=== PATIENT | male | born 1940 | race Caucasian/White ===

== ENCOUNTER 2023-04-21 08:57 | Inpatient (IN) | payer MEDICARE, BC ==
[~2023-04-21] VITALS: Ht 177.8 cm; Wt 67.1 kg
--- NOTE | 2023-04-21 09:10 | NUR ---
Patient brought in by ambulance, connected to groundwater monitoring technician assess by physician. Placed on NR 15L. saturtion 100%. Diaper changed and large blood clot removed.
[2023-04-21] MEDS ORDERED: IV NORMAL SALINE 500 ML BAG IV ONE (09:15)
[2023-04-21] MEDS ORDERED: TEMA15CA PO (09:33)
[2023-04-21] MEDS ORDERED: OLAN5TAB3 PO (09:33)
[2023-04-21] MEDS ORDERED: ASPI81TA31 PO (09:33)
[2023-04-21] MEDS ORDERED: TAMS-3 PO (09:33)
[2023-04-21] MEDS ORDERED: BISA10SU95 RC (09:33)
[2023-04-21] MEDS ORDERED: ATOR40TA PO (09:33)
[2023-04-21] MEDS ORDERED: LIDOCAINE 4% TP (09:33)
[2023-04-21] MEDS ORDERED: MELA3CAP2 PO (09:33)
[2023-04-21] MEDS ORDERED: MAGN400O6 PO (09:33)
[2023-04-21] MEDS ORDERED: ACET325T53 PO (09:33)
[2023-04-21] MEDS ORDERED: POLY250017 PO (09:33)
[2023-04-21] MEDS ORDERED: BUPR200T31 PO (09:33)
[2023-04-21] MEDS ORDERED: NEOM1OIN19 TP (09:33)
[2023-04-21 09:51] LABS: HEMATOCRIT 29.9 % (36.7-47.1); MEAN CORPUSCULAR VOLUME 97.9 fL (73.0-96.2); PLATELET COUNT (AUTO) 342 K/uL (152-348)
[2023-04-21 09:59] LABS: CARBON DIOXIDE 29 mmol/L (21-32); CHLORIDE 108 mmol/L (98-107); CREATININE 0.9 mg/dL (0.6-1.3); GLUCOSE 108 mg/dL (74-106); POTASSIUM 3.6 mmol/L (3.5-5.1); UREA NITROGEN, BLOOD 16 mg/dL (7-18)
[2023-04-21 10:05] LABS: ALANINE AMINOTRANSFERASE < 6 U/L (16-63); ALKALINE PHOSPHATASE 87 U/L (50-136); ASPARTATE AMINOTRANSFERASE 6 U/L (15-37); BILIRUBIN,DIRECT 0.1 mg/dL (0.0-0.2); BILIRUBIN,TOTAL 0.4 mg/dL (0.2-1.0); TOTAL PROTEIN, SERUM 5.8 g/dL (6.4-8.2)
--- NOTE | 2023-04-21 10:07 | NUR ---
At this time taken off NR did not tolerated well saturation drop to 88% Dr. qureshi. HR of 66 95/58 RR18. No c/of pain will continue with care plan. Addendum: 04/21/23 at 1036 by LESOS NC 6 liters applied at this time.
--- NOTE | 2023-04-21 10:17 | NUR ---
[facility] called message left with facing machine operator awaiting call back from Dr. Villafana.
--- NOTE | 2023-04-21 10:21 | NUR ---
Dr. Villafana calling back and discussed care plan with Dr. Mckee.
[2023-04-21] MEDS ORDERED: ACETAMINOPHEN 325 MG TABLET PO PRN (10:30)
[2023-04-21] MEDS ORDERED: ONDANSETRON 4 MG/2 ML VIAL IV PRN (10:30)
[2023-04-21] MEDS ORDERED: hydrALAZINE HCL 20 MG/1 ML VIAL IV PRN (10:30)
--- NOTE | 2023-04-21 10:35 | NUR ---
Admitting physician in to examine pt.
--- NOTE | 2023-04-21 10:36 | NUR ---
NC oxygen lowered to 2 liters saturation 96%.
--- NOTE | 2023-04-21 10:51 | NUR ---
Report given to charge Tim Shipley. patient will be taken up once Covid-19 results are reported.
--- NOTE | 2023-04-21 11:30 | NUR ---
Pt. admitted to [facility] unit. Alert and oriented x1 and confused. Admitted because of GI bleeding. Noted pt. to be stable. Call light within reach. Bed in low position. Pt. is bed bounded. Incontinent of bowel and bladder. Will keep monitoring the patient.
[2023-04-21 11:48] VITALS: BP 126/72
--- NOTE | 2023-04-21 11:48 | NUR ---
Took pt to room 325 last set of vitals: hr 79, 137/75 saturation of 98% on 2LNC. patient situated in bed. and linen change with help of chargeback specialist.
[2023-04-21] MEDS: PANTOPRAZOLE SODIUM 40 MG VIAL IV SCH ×2 (11:54→20:29)
[2023-04-21] MEDS: IV NS 1000 ML 1,000 ML IV PRN ×2 (11:55→20:31)
--- NOTE | 2023-04-21 13:48 | NUR ---
Skin assessment done, noted with redness to sacral area, foam dressing applied, continue turning and repositioning, noted with purplish discolorations to left forearm, keep free from friction and further complications. also noted with blanchable redness to both heels, float on pillows all the time to prevent further complications. inspect skin every shift.
--- NOTE | 2023-04-21 14:02 | NUR ---
patient son requested to talk to , Doctor Can made aware. patient lives in [facility] in [place]. Addendum: 04/21/23 at 1407 by DANII CASTAÑEDA RN RN per dr can he called at [phone] but no answer. this clinical writer tried to call again as well, no answer.
[2023-04-21 16:42] VITALS: BP 128/44
[2023-04-21] MEDS: OLANZAPINE 5 MG TABLET PO SCH (17:23)
[2023-04-21] MEDS: DOCUSATE SODIUM 100 MG CAPSULE PO SCH (17:23)
[2023-04-21 18:13] LABS: HEMATOCRIT 25.5 % (36.7-47.1)
--- NOTE | 2023-04-21 19:45 | NUR ---
found heplock out patient with old blood on his left forearm ivf disconnected and was out re sited H/L paced no. 20 G attempted x1 to the left ac .ADVISED AND EDUCATED PATIENT NOT TO REMOVED THE IVF .
[2023-04-21] MEDS: ATORVASTATIN 40 MG TABLET PO SCH (20:29)
--- NOTE | 2023-04-21 20:30 | NUR ---
with cnas help changed soiled linens and gown ,patient incontinent of urine no active GI BLEEDING NOTED.
--- NOTE | 2023-04-21 20:45 | NUR ---
TAD FRYE CALLED ASKED IF PATIENT IS BEING D/C TODAY INFORMED HER PATIENT IS NOT FOR D/C SHE SAID PATIENT LIVES IN HER BOARDING HOME THE NEST AND IF HE IS BEING D/C SHE CAN EMBROIDERY FINISHER THE PATIENT. HER TEL NO .[phone] WILL ENDORSED IN AM .
[2023-04-21 20:49] VITALS: BP 134/8
--- NOTE | 2023-04-22 01:30 | NUR ---
patient getting out of bed confused and unable to follow commands advised to call for help and to used the call light patient unable to comprehend restraint protocol implemented for fall precaution and patient keep removing ivf .
--- NOTE | 2023-04-22 02:00 | NUR ---
bias cutting machine operator came for patient H/H schedule at 0200 patient refused to have the lab done he told the phlebotomists to come back with in 5 to 7 minutes when the bias cutting machine operator came back the patient strongly refused the lab draw .
[2023-04-22 04:30] VITALS: BP 116/57
[2023-04-22 05:16] LABS: HEMATOCRIT 24.5 % (36.7-47.1); MEAN CORPUSCULAR HEMOGLOBIN 33.3 uug (23.8-33.4); PLATELET COUNT (AUTO) 286 K/uL (152-348)
[2023-04-22 05:29] LABS: BILIRUBIN,TOTAL 0.2 mg/dL (0.2-1.0); CREATININE 0.7 mg/dL (0.6-1.3); PHOSPHOROUS 2.4 mg/dL (2.5-4.9); POTASSIUM 3.3 mmol/L (3.5-5.1); TOTAL PROTEIN, SERUM 5.1 g/dL (6.4-8.2)
--- NOTE | 2023-04-22 06:00 | NUR ---
INCONTINENT OF URINE CHANGED SOILED LINENS AND GOWN TURNED AND REPOSITION OFFLOADED BACK WITH PILLOWS AND BUE AND BLE ELEVATED WITH PILLOWS.
[2023-04-22] MEDS: TAMSULOSIN HCL 0.4 MG CAP.SR.24H PO SCH ×2 (08:32→20:17)
[2023-04-22] MEDS: PANTOPRAZOLE SODIUM 40 MG VIAL IV SCH (08:32)
[2023-04-22] MEDS: buPROPion XL 150 MG TAB.SR.24H PO SCH (08:32)
[2023-04-22] MEDS: DOCUSATE SODIUM 100 MG CAPSULE PO SCH ×2 (08:33→16:43)
[2023-04-22] MEDS ORDERED: BUPROPION HCL 300 MG PO SCH (09:00)
[2023-04-22] MEDS ORDERED: POTASSIUM CHLORIDE 20 MEQ TAB.PRT.SR PO ONE (09:30)
--- NOTE | 2023-04-22 10:00 | NUR ---
POTASSIUM LEVEL IS 3.3 WITH ORDER FOR POTASSIUM REPLACEMENTS AND NOTED.
[2023-04-22 10:21] LABS: HEMATOCRIT 23.4 % (36.7-47.1)
--- NOTE | 2023-04-22 10:22 | NUR ---
PATIENT SEEN AND EXAMINED BY SHANIKA JETER CANINE SERVICE INSTRUCTOR TRAINER WITH NEW ORDERS AND NOTED.
--- NOTE | 2023-04-22 10:30 | NUR ---
PATIENT IS STILL FORGETFUL BUT IS MORE ALERT SO HIS ARTHUR WRIST RESTRAINTS IS ON HOLD WILL OBSERVE PATIENT FOR THE NEED TO CONTINUE WITH THE RESTRAINTS.
[2023-04-22 11:34] VITALS: BP 118/55
[2023-04-22] MEDS: IV NS 1000 ML 1,000 ML IV PRN ×2 (11:37→22:32)
--- NOTE | 2023-04-22 12:45 | NUR ---
CALLED AND NOTIFIED SHANIKA JETER RE PATIENT HAS A STANDING ORDER FOR H/H THAT IS ON UNTIL THE AND ALREADY WAS DRAWN AT 1000 AND HE ORDERED ANOTHER BLOOD DRAW AT 1600 AND HE STATED TO CANCEL THE 1600 AND LEAVE IT IS FROM DR JARA AND NOTED.
[2023-04-22] MEDS ORDERED: NEUTRA PHOS PACKET PO ONE (15:30)
[2023-04-22 15:31] VITALS: BP 125/53
[2023-04-22] MEDS: PANTOPRAZOLE SODIUM 40 MG TABLET.DR PO SCH (16:43)
[2023-04-22] MEDS: OLANZAPINE 5 MG TABLET PO SCH (17:27)
--- NOTE | 2023-04-22 17:34 | NUR ---
BILATERAL WRIST RESTRAINTS REMAIN OFF AT THIS TIME PATIENT HAS BEEN REDIRECTABLE AND IS NOT PULLING ON HIS IVS WILL DISCONTINUE AT THIS TIME AND WILL REASSESS NEEDED. PHOS LEVEL IS 2.2 WITH REPLACEMENTS ORDERED.
[2023-04-22 18:04] LABS: HEMATOCRIT 23.5 % (36.7-47.1)
[2023-04-22] MEDS: ATORVASTATIN 40 MG TABLET PO SCH (20:18)
[2023-04-22 20:31] VITALS: BP 128/46
[2023-04-23] VITALS (7 sets, daily range): BP systolic 103–156; BP diastolic 48–63
--- NOTE | 2023-04-23 02:08 | NUR ---
incontinent of stool noted with blood in the stool send stool for occult blood with cnas help changed soiled linens and gown turned and reposition patient offloaded back and bilateral heels with pillow .
[2023-04-23 02:11] LABS: HEMATOCRIT 21.1 % (36.7-47.1)
--- NOTE | 2023-04-23 02:54 | NUR ---
CALLED [facility] FOR PATIENT H/H RESULTS 7.2 .1 AND PATIENT HAD X1 BM MODERATE IN AMOUNT WITH BLOOD COLLECTED STOOL AND SEND OF OCCULT BLOOD WITH ORDER TO GIVE 1 UNIT OF PRBC .
[2023-04-23 03:07] LABS: *OCCULT BLOOD STOOL POSITIVE (NEGATIVE)
--- NOTE | 2023-04-23 04:10 | NUR ---
patient sign blood consent and agree with blood transfusion witness by another RN at b/s [place] .
--- NOTE | 2023-04-23 04:24 | NUR ---
STARTED 1 UNIT PRBC BLOOD TRANSFUSION PROTOCOL FOLLOWED.
[2023-04-23] MEDS: PANTOPRAZOLE SODIUM 40 MG TABLET.DR PO SCH ×2 (06:07→16:30)
--- NOTE | 2023-04-23 08:05 | NUR ---
BLOOD TRANSFUSSION COMPLETED AT THIS TIME AND PATIENT TOLERATED WELL WITH NO ADVERSE OR ALLERGIC REACTIONS AT THIS TIME.
[2023-04-23] MEDS: buPROPion XL 150 MG TAB.SR.24H PO SCH (08:20)
[2023-04-23] MEDS: DOCUSATE SODIUM 100 MG CAPSULE PO SCH ×2 (08:20→16:30)
[2023-04-23] MEDS: TAMSULOSIN HCL 0.4 MG CAP.SR.24H PO SCH ×2 (08:21→21:32)
[2023-04-23 10:19] LABS: CREATININE 0.8 mg/dL (0.6-1.3); MAGNESIUM 1.8 mg/dL (1.8-2.4); PHOSPHOROUS 2.3 mg/dL (2.5-4.9); POTASSIUM 3.5 mmol/L (3.5-5.1)
[2023-04-23 10:22] LABS: HEMATOCRIT 23.1 % (36.7-47.1); MEAN CORPUSCULAR VOLUME 97.3 fL (73.0-96.2); PLATELET COUNT (AUTO) 242 K/uL (152-348)
[2023-04-23] MEDS: IV NS 1000 ML 1,000 ML IV PRN ×2 (10:25→23:12)
--- NOTE | 2023-04-23 11:24 | NUR ---
WOUND CARE CO NSULT: PT ANGRY AND IRRITABLE, REFUSED SKIN ASSESSMENT. PER ADMISSION PHOTOS AND NURSING DOCUMENTATION, SACRAL DEEP TISSUE INJURY, REDNESS TO HEELS AND LOWER LEGS NOTED TO BE PRESENT ON ADMISSION. DISCUSSED SKIN PROTECTION WITH NURSING STAFF. MD IN AGREEMENT WITH PLAN OF CARE.
[2023-04-23] MEDS ORDERED: REMEDY ESSENTIAL ZINC PASTE 113 GM TOP PRN (11:30)
[2023-04-23] MEDS: REMEDY ESSENTIAL ZINC PASTE 113 GM TOP SCH ×2 (11:45→21:33)
--- NOTE | 2023-04-23 14:16 | NUR ---
PER DR JARA STATED THAT HE SPOKE WITH DR FARRIS AND THE PLAN IS THAT PATIENT WILL HAVE COLONOSCOPY TOMORROW AND WILL HAVE GOLYTELY TONIGHT FOR THE PREP DR JARA ALSO STATED TO INSERT NGT AND GIVE PATIENT THE GOLYTELY THROUGH THE TUBE SPOKE WITH PATIENT AND HE STATED ABSOLUTELY NOT WILL NOT ALLOW IT STATED THAT HE WILL BE ABLE TO DRIK THE GOLYTELY MESSAGE SENT TO DR JARA AWAITING FOR HIS RESPONSE.
--- NOTE | 2023-04-23 15:00 | NUR ---
DR JARA RETURNED CALL AND STATED OKAY TO TRY LETTING PATIENT DRINK THE GOLYTELY.
--- NOTE | 2023-04-23 15:55 | NUR ---
CALLED AND SPOKE WITH PATIENTS MAX ARMANDO COLONOSCOPY AND CONSCENT OBTAINED WITHNESSED BY ANOTHER RN PER PROTOCOL AND FILED IN THE CHART.
[2023-04-23] MEDS ORDERED: NEUTRA PHOS PACKET PO ONE (16:00)
[2023-04-23] MEDS: OLANZAPINE 5 MG TABLET PO SCH (17:32)
--- NOTE | 2023-04-23 17:35 | NUR ---
GOLYTELY STARTED ORDERED PATIENT IS DRINKING SLOWLY ENCOURAGED TO KEEP DRINKING ORDERED IN ORDER TO AVOID PLACING THE NGT AND HE EXPRESSED UNDERSTANDING.
[2023-04-23] MEDS ORDERED: GOLYTELY 4000 ML BOTTLE PO ONE (18:00)
--- NOTE | 2023-04-23 18:18 | NUR ---
ON HIS 3RD CUP OF THE GOLYTELY ENCOURAGED TO KEEP IT UP AND CONTINUE MUCH POSSIBLE.
[2023-04-23 18:56] LABS: HEMATOCRIT 23.8 % (36.7-47.1)
--- NOTE | 2023-04-23 19:40 | NUR ---
AT THIS TIME PATIENT CONSUMED ABOUT 5 CUPS OF 120 ML EACH CUP AND THEN REFUSED TO DRINK ANYMORE SO WE WERE ABLE TO INSERT NGT TO HIS RIGHT NARES GAUGE 14 AND ARTHUR WRIST RESTRAINTS APPLIED PATIENT IS TRYING TO REMOVE THE TUBE DR Castillo NOTIFIED AND OKAYED.
--- NOTE | 2023-04-23 21:15 | NUR ---
incontinent of stool with blood with cnas help changed soiled linens and gown . patient with NGT for golytely pre op for GI PROCEDURE patient is schedule for colonoscopy in am.
[2023-04-23] MEDS: ATORVASTATIN 40 MG TABLET PO SCH (21:32)
--- NOTE | 2023-04-23 22:00 | NUR ---
tolerating golytely solution via the NGT hob up aspiration precaution observed .
--- NOTE | 2023-04-24 00:15 | NUR ---
incontinent of stool brownish colored stool no blood noted this time .
--- NOTE | 2023-04-24 03:30 | NUR ---
sleeping in bed no respiratory distress noted .
[2023-04-24 04:00] VITALS: BP 155/79
--- NOTE | 2023-04-24 05:30 | NUR ---
incontinent of stool form soft stool with blood . changed soiled linens and gown , perineal and penile care done .
[2023-04-24] MEDS: PANTOPRAZOLE SODIUM 40 MG TABLET.DR PO SCH ×2 (06:09→17:36)
--- NOTE | 2023-04-24 06:10 | NUR ---
PROTONIX NOT GIVEN PATIENT NPO AND PILL INSTRUCTION NOT TO CRUSHED MEDS PATIENT WITH NGT WILL ENDORSED TO CHANGED PROTONIX TO IVP .
[2023-04-24 06:44] LABS: HEMATOCRIT 25.8 % (36.7-47.1); MEAN CORPUSCULAR HEMOGLOBIN 33.5 uug (23.8-33.4); MEAN CORPUSCULAR VOLUME 97.4 fL (73.0-96.2); PLATELET COUNT (AUTO) 306 K/uL (152-348)
[2023-04-24 07:10] LABS: CARBON DIOXIDE 28 mmol/L (21-32); CHLORIDE 109 mmol/L (98-107); CREATININE 0.7 mg/dL (0.6-1.3); GLUCOSE 93 mg/dL (74-106); PHOSPHOROUS 2.5 mg/dL (2.5-4.9); POTASSIUM 3.3 mmol/L (3.5-5.1); UREA NITROGEN, BLOOD 9 mg/dL (7-18)
--- NOTE | 2023-04-24 08:00 | NUR ---
PER DALILA FROM OR DR GODINEZ AWARE THAT PATIENT TOOK 3800 ML OF GOLYTELY THEN C/O ABD PAIN AND PER THE NOC NURSE PATIENT HAD A BOWEL MOVEMENT MACHINE SHOP WORKER AND THE JUDSON IS NOT CLEAR WITH ORDERS TO GIVE REGLAN IV PUSH X I THEN GIVE THE REST OF THE GOLYTELY AND NOTED.STATED TO KEEP PATIENT NPO UNTIL THE SCHEDULED TIME FOR COLONOSCOPY WHICH IS 8 PM
[2023-04-24] MEDS ORDERED: METOCLOPRAMIDE HCL 10 MG/2 ML VIAL IV ONE (08:45)
[2023-04-24] MEDS ORDERED: POTASSIUM CHLORIDE 50 ML IV SCH (09:15)
[2023-04-24 09:41] LABS: BILIRUBIN,DIRECT 0.1 mg/dL (0.0-0.2); BILIRUBIN,TOTAL 0.3 mg/dL (0.2-1.0); TOTAL PROTEIN, SERUM 5.1 g/dL (6.4-8.2)
[2023-04-24 10:07] LABS: THYROID STIMULATING HORMONE 2.27 mIU/mL (0.358-3.740)
--- NOTE | 2023-04-24 10:07 | NUR ---
CALLED DR HERBERT ARMANDO PATIENT IS STILL HAS FORMED STOOL LARGE AMOUNT DESPITE THE GOLYTELY ORDERED LEFT HIM A MESSAGE.
--- NOTE | 2023-04-24 10:12 | NUR ---
DR GODINEZ RETURNED CALL AND GAVE ME AN ORDER FOR ANOTHER BOTTLE GOLYTELY AND STATED TO KEEP PATIENT NPO AFTER LUNCH AND NOTED
[2023-04-24] MEDS: buPROPion XL 150 MG TAB.SR.24H PO SCH (10:13)
[2023-04-24] MEDS: DOCUSATE SODIUM 100 MG CAPSULE PO SCH ×2 (10:13→17:36)
[2023-04-24] MEDS: TAMSULOSIN HCL 0.4 MG CAP.SR.24H PO SCH ×2 (10:13→20:27)
[2023-04-24] MEDS: REMEDY ESSENTIAL ZINC PASTE 113 GM TOP SCH ×2 (10:14→20:31)
[2023-04-24] MEDS ORDERED: GOLYTELY 4000 ML BOTTLE PO ONE (10:15)
[2023-04-24 11:01] VITALS: BP 128/69
--- NOTE | 2023-04-24 11:48 | NUR ---
WOUND CARE: PT PRESENTS WITH SACRAL DEEP TISSUE INJURY WHICH WAS NOTED TO BE PRESENT ON ADMISSION. PT IS INCONTINENT OF FORMED STOOL. DISCUSSED WITH NURSING STAFF. DISCUSSED SKIN PROTECTION WITH NURSING STAFF. MD IN AGREEMENT WITH PLAN OF CARE.
[2023-04-24] MEDS: IV NS 1000 ML 1,000 ML IV PRN (12:36)
[2023-04-24 14:59] LABS: HEMATOCRIT 25.5 % (36.7-47.1)
[2023-04-24 15:03] VITALS: BP 129/60
--- NOTE | 2023-04-24 16:52 | NUR ---
PATIENT SEEN AND EXAMINED BY DR BYRNES WITH NEW ORDERS AND NOTED.
[2023-04-24] MEDS: OLANZAPINE 5 MG TABLET PO SCH (17:36)
--- NOTE | 2023-04-24 18:00 | NUR ---
WHOLE BOTTLE OF GOLYTELY GIVEN VIA NGT ORDERED AND THE STOOL IA STILL YELLOWISH WITH SEDIMENTS PATIENT HAS 5 BOWEL MOVEMENTS TODAY.
--- NOTE | 2023-04-24 19:03 | NUR ---
THE SURGICAL TEAM HERE AND I NOTIFIED AND SHOWED THEM THAT PATIENT STILL HAS SEDIMENTS IN HIS BOWEL MOVEMENTS AND ITS STILL YELLOW IN COLOR STATED WILL LET DR GODINEZ KNOW STATED THAT ITS UNLIKELY THAT IT WILL BE DONE TODAY.
[2023-04-24 20:20] VITALS: BP 144/60
[2023-04-24] MEDS: ATORVASTATIN 40 MG TABLET PO SCH (20:27)
[2023-04-25] MEDS: IV NS 1000 ML 1,000 ML IV PRN (01:34)
--- NOTE | 2023-04-25 03:35 | NUR ---
Admitted for GI bleed. AAOx1-2 Confused and disoriented.Bilateral wrist restraints intact, released q2h and ROM done. NGT intact. Colonoscopy cancelled. Patient wasnt cleared yet. Patient still having periods of loose BM x2 Kept clean and dry. Will monitor patient. IVF's infusing well. Kept comfortable. Patient keep on pulling his diaper and IV. Incontinent of urine x2. No more BM. Clear liquid diet tolerated well. Will monitor patient. Fall precautions maintained. Siderails up for safety. VSS.
[2023-04-25 04:35] VITALS: BP 112/51
[2023-04-25] MEDS: PANTOPRAZOLE SODIUM 40 MG TABLET.DR PO SCH ×2 (06:13→16:50)
[2023-04-25 06:45] LABS: HEMATOCRIT 22.3 % (36.7-47.1); MEAN CORPUSCULAR HEMOGLOBIN 33.6 uug (23.8-33.4); PLATELET COUNT (AUTO) 306 K/uL (152-348)
[2023-04-25 07:21] LABS: IRON, SERUM 21 ug/dL (50-175)
[2023-04-25 07:39] LABS: ALANINE AMINOTRANSFERASE 27 U/L (16-63); ALKALINE PHOSPHATASE 82 U/L (50-136); ASPARTATE AMINOTRANSFERASE 24 U/L (15-37); BILIRUBIN,TOTAL 0.4 mg/dL (0.2-1.0); CARBON DIOXIDE 28 mmol/L (21-32); CHLORIDE 107 mmol/L (98-107); CREATININE 0.7 mg/dL (0.6-1.3); GLUCOSE 63 mg/dL (74-106); MAGNESIUM 1.9 mg/dL (1.8-2.4); PHOSPHOROUS 2.7 mg/dL (2.5-4.9); TOTAL PROTEIN, SERUM 4.7 g/dL (6.4-8.2); UREA NITROGEN, BLOOD 5 mg/dL (7-18)
[2023-04-25] MEDS: DOCUSATE SODIUM 100 MG CAPSULE PO SCH ×2 (08:43→16:51)
[2023-04-25] MEDS: buPROPion XL 150 MG TAB.SR.24H PO SCH (08:43)
[2023-04-25] MEDS: TAMSULOSIN HCL 0.4 MG CAP.SR.24H PO SCH ×2 (08:44→20:30)
[2023-04-25] MEDS: REMEDY ESSENTIAL ZINC PASTE 113 GM TOP SCH ×2 (08:44→20:32)
--- NOTE | 2023-04-25 09:46 | NUR ---
0730-REC'D PATIENT IN BED, HOB ELEVATED. PATIENT IS AWAKE, VERBALLY RESPONSIVE, DENIES PAIN. NO RESPIRATORY DISTRESS NOTED. PATIENT FORGETFUL WITH PERIODS OF CONFUSION. REDIRECT NEEDED. REC'D PATIENT WITH SOFT WRIST RESTRAINTS IN PLACE DT PULLING OUT ON TUBINGS e.g. NGT/IVs, SKIN CHECKED, NO SKIN IMPAIRMENT/CIRCULATION NOTED. ALL SAFETY MEASURES IN PLACE, CALL LIGHT WITHIN REACH. FREQUENT VISUAL CHECKS DONE. 0900-SCHEDULED MEDICATIONS ADMINISTERED WITH NO ASE NOTED. PATIENT CONTINUES ON IVF HYDRATION ORDERED., FOLLOWED UP WITH Dr. GODINEZ, (GI MD) REGARDING COLONOSCOPY PROCEDURE SCHEDULED 04/24/23 & NOT DONE. PER Dr. GODINEZ, PROCEDURE TO BE HOLD IF PATIENT IS NOT BLEEDING. 0940-SPOKE TO PATIENT'S SON (DIXIE) & UPDATED ON PATIENT'S CONDITION/COLONOSCOPY PROCEDURE NOT DONE FOR NOW. PER DIXIE, KINDLY KEEP HIM UPDATED ON ANY PROCEDURE AND/OR ANY PROCEDURE DONE.
[2023-04-25 11:14] VITALS: BP 126/75
[2023-04-25] MEDS: POTASSIUM CHLORIDE 20 MEQ TAB.PRT.SR PO SCH ×3 (11:39→16:53)
--- NOTE | 2023-04-25 13:42 | NUR ---
1:28PM-SPOKE TO Dr. HINOJOSA, (GI) SPECIALIST, F/U ON COLONOSCOPY. PER Dr. HINOJOSA HE DOES "NOT HAVE TIME TO DO THE COLONOSCOPY PROCEDURE TODAY, PATIENT IS STABLE., KEEP HIM ON A CLEAR LIQUID DIET" Dr. GODINEZ ADDED, HE WILL SPEAK TO DR. RICHARD.
[2023-04-25 15:01] VITALS: BP 93/46
[2023-04-25 17:37] LABS: HEMATOCRIT 22.6 % (36.7-47.1)
[2023-04-25] MEDS: POTASSIUM CHLORIDE 20 MEQ in IV D5/ 0.9% NACL 1,000 ML IV PRN (17:47)
[2023-04-25] MEDS: OLANZAPINE 5 MG TABLET PO SCH (18:27)
--- NOTE | 2023-04-25 18:46 | NUR ---
Per Dr. Jaramillo, agrees on clear liq diet till mid night, thereafter NPO. IVF NS dc'd, patient now on IVF + KCL 20mEq D5 NS. IV to RT hand G20" infusing well, site intact. Patient continues on soft wrist restraints with no skin impairment or circulation noted at this time. Patient in stable conditions, no BM during shift. VSS, no c/o pain or discomfort, no respiratory issues noted. All needs attended well and met. Endorsed to incoming shift relieving nurse.
[2023-04-25] MEDS ORDERED: PROPOFOL 200 MG/20 ML BOTTLE ONE (19:00)
[2023-04-25] MEDS ORDERED: LIDOCAINE-MPF 2% 5 ML VIAL ONE (19:00)
[2023-04-25] MEDS: ATORVASTATIN 40 MG TABLET PO SCH (20:30)
[2023-04-25 23:06] LABS: HEMATOCRIT 24.4 % (36.7-47.1)
[2023-04-25] MEDS ORDERED: LORAZEPAM 2 MG/1 ML VIAL IV ONE (23:15)
--- NOTE | 2023-04-26 00:24 | NUR ---
Received patient in bed confused and disoriented. Patient on bilateral wrist restraints. Patient been screaming at times,been refusing care and vital signs. IVF's infusing well. NPO after MN. For colonoscopy this am. Ativan 1 mg IV push given as ordered. Patient been incontinent of urine but no BM. At approximately 2230pm noticed patient having episodes of bleeding with clots. Stat Hgb & Hct done. Patient kept clean and will monitor for results. Hgb 8.4 admitting interviewer aware. Kept comfortable. Will monitor for further bleeding. All needs attended. VSS.
--- NOTE | 2023-04-26 03:58 | NUR ---
Patient still have some rectal bleeding with clots. NPO maintained. For colonoscopy this am. VSS. For repeat CBC this am. Bilateral wrist restraints maintained. No agitation noted so far.
[2023-04-26 05:32] VITALS: BP 144/73
[2023-04-26] MEDS: POTASSIUM CHLORIDE 20 MEQ in IV D5/ 0.9% NACL 1,000 ML IV PRN ×2 (05:59→18:00)
[2023-04-26] MEDS: PANTOPRAZOLE SODIUM 40 MG TABLET.DR PO SCH ×2 (06:11→16:32)
[2023-04-26 06:41] LABS: HEMATOCRIT 21.4 % (36.7-47.1); MEAN CORPUSCULAR HEMOGLOBIN 34.4 uug (23.8-33.4); MEAN CORPUSCULAR VOLUME 98.2 fL (73.0-96.2); PLATELET COUNT (AUTO) 331 K/uL (152-348)
[2023-04-26 06:57] LABS: CREATININE 0.7 mg/dL (0.6-1.3); MAGNESIUM 1.9 mg/dL (1.8-2.4); PHOSPHOROUS 3.1 mg/dL (2.5-4.9); POTASSIUM 3.6 mmol/L (3.5-5.1)
[2023-04-26] MEDS: DOCUSATE SODIUM 100 MG CAPSULE PO SCH ×2 (09:00→16:32)
[2023-04-26] MEDS: buPROPion XL 150 MG TAB.SR.24H PO SCH (09:00)
[2023-04-26] MEDS: CYANOCOBALAMIN 1000 MCG/ML VIAL IM SCH (09:00)
[2023-04-26] MEDS: TAMSULOSIN HCL 0.4 MG CAP.SR.24H PO SCH ×2 (09:00→20:36)
[2023-04-26] MEDS: REMEDY ESSENTIAL ZINC PASTE 113 GM TOP SCH ×2 (09:11→20:37)
[2023-04-26 11:46] VITALS: BP 138/51
[2023-04-26] MEDS: MORPHINE SULFATE 2 MG/1 ML DISP.SYRIN IVP PRN ×2 (13:47→18:00)
--- NOTE | 2023-04-26 15:24 | NUR ---
patient is in bed, turned, repositioned, both heel skin inspected, no issues noted, kept clean and dry, Kept NPO, colonscopy this evening at 7am, son Gabe is aware. NG tube removed. no bleeding noted until this time.
[2023-04-26 15:55] VITALS: BP 145/57
[2023-04-26] MEDS: OLANZAPINE 5 MG TABLET PO SCH (16:32)
[2023-04-26] MEDS ORDERED: EPINEPHRINE-PF 1:1000 1 MG/ML AMPUL ONE (18:33)
[2023-04-26] MEDS ORDERED: FENTANYL CITRATE 100 MCG/2 ML AMPUL ONE (18:44)
--- NOTE | 2023-04-26 18:46 | NUR ---
patient is picked up for colonscopy, endorsed to OR nurse that patient was given 2mg of Morphine push at 1800.
[2023-04-26] MEDS: ATORVASTATIN 40 MG TABLET PO SCH (20:36)
[2023-04-26 23:01] VITALS: BP 106/66
[2023-04-27] MEDS: MORPHINE SULFATE 2 MG/1 ML DISP.SYRIN IVP PRN (02:21)
[2023-04-27] MEDS: PANTOPRAZOLE SODIUM 40 MG TABLET.DR PO SCH ×2 (06:20→17:46)
--- NOTE | 2023-04-27 07:26 | NUR ---
REPORT GIVEN TO NIRANJAN GIBSON
[2023-04-27 09:04] LABS: HEMATOCRIT 21.7 % (36.7-47.1); MEAN CORPUSCULAR HEMOGLOBIN 33.8 uug (23.8-33.4); MEAN CORPUSCULAR VOLUME 98.9 fL (73.0-96.2); PLATELET COUNT (AUTO) 357 K/uL (152-348)
[2023-04-27 09:30] LABS: CREATININE 0.8 mg/dL (0.6-1.3); POTASSIUM 3.6 mmol/L (3.5-5.1)
[2023-04-27 09:35] LABS: BILIRUBIN,TOTAL 0.3 mg/dL (0.2-1.0); TOTAL PROTEIN, SERUM 5.3 g/dL (6.4-8.2)
[2023-04-27] MEDS: CYANOCOBALAMIN 1000 MCG/ML VIAL IM SCH (09:59)
[2023-04-27] MEDS: DOCUSATE SODIUM 100 MG CAPSULE PO SCH ×2 (09:59→17:47)
[2023-04-27] MEDS: buPROPion XL 150 MG TAB.SR.24H PO SCH (09:59)
[2023-04-27] MEDS: TAMSULOSIN HCL 0.4 MG CAP.SR.24H PO SCH ×2 (09:59→21:49)
[2023-04-27 10:00] VITALS: BP 95/46
[2023-04-27] MEDS: REMEDY ESSENTIAL ZINC PASTE 113 GM TOP SCH ×2 (10:04→21:00)
[2023-04-27] MEDS: POTASSIUM CHLORIDE 20 MEQ in IV D5/ 0.9% NACL 1,000 ML IV PRN (10:06)
[2023-04-27 12:09] VITALS: BP 101/49
[2023-04-27] MEDS ORDERED: EPOETIN ALFA-EPBX 10,000 UNIT/ML VIAL SQ ONE (13:00)
[2023-04-27 15:44] VITALS: BP 104/47
[2023-04-27 17:18] LABS: *BILIRUBIN,URIN NEGATIVE (NEGATIVE); *BLOOD, URINE 2+ (NEGATIVE); *CLARITY,URINE CLEAR (CLEAR); *COLOR,URINE YELLOW (YELLOW); *KETONES,URINE NEGATIVE (NEGATIVE); *UROBILINOGEN,URINE 0.2 E.U./dl (NORMAL); LEUKOCYTE ESTERASE ,URINE 3+ (NEGATIVE); NITRITE, URINE POSITIVE (NEGATIVE); UGLUCOSE NEGATIVE (NEGATIVE)
[2023-04-27 17:33] LABS: BACTERIA,URINE MANY /HPF (NONE SEEN); RBC,URINE 50-80 /HPF (0-3); SQUAMOUS EPITHELIAL CELL,UR FEW /HPF (NONE SEEN); WBC,URINE 80-100 /HPF (0-3)
[2023-04-27] MEDS: OLANZAPINE 5 MG TABLET PO SCH (17:46)
[2023-04-27] MEDS: CEFTRIAXONE 1 G in IV DEXTROSE 5% 50 ML IV SCH (18:16)
--- NOTE | 2023-04-27 19:25 | NUR ---
RECEIVED REPORT FROM [facility] SHIFT RN. PATIENT IS ALERT AND ORIENTED X1-2 AND SPEAKS CITIZEN OF [place]. VITAL SIGNS STABLE. PATIENT TOLERATES PO MEDICATIONS AND DIET WELL. PATIENT DENIES PAIN. PATIENT CONTINUES TO BE ON RESTRAINTS, NOTED TO CONTINUE TO BE RESTLESS, HOWEVER ABLE TO MANAGED. PATIENT WAS SET TO BE DISCHARGE TODAY. HOWEVER AFTER DISCUSSION WITH SENIORITY MANOR SECOND MILLER, UDAY, AND SON, ESTELLE. RN NOTIFIES MD REGARDING THEIR CONCERNS RELATED TO THE BLOOD PRESSURE. PER MD, PATIENT WILL STAY ONE MORE NIGHT FOR OBSERVATION. RN NOTED. NOTIFIED FAMILY, SENIORITY MANOR SECOND MILLER, AND ASSOCIATE PROFESSOR OF MUSIC APPROPRIATELY. NO ACUTE DISTRESS NOTED. CALL LIGHT WITHIN REACH. FALL PRECAUTIONS OBSERVED. RN ENDORSED CARE TO [facility] SHIFT NURSE FOR CONTINUATION OF CARE.
[2023-04-27 20:14] VITALS: BP 92/47
[2023-04-27] MEDS: ATORVASTATIN 40 MG TABLET PO SCH (21:49)
[2023-04-27] MEDS: POTASSIUM CHLORIDE 20 MEQ in IV NS 1000 ML 1,000 ML IV PRN (21:49)
[2023-04-28] VITALS (10 sets, daily range): BP systolic 90–110; BP diastolic 35–89
[2023-04-28] MEDS: MORPHINE SULFATE 2 MG/1 ML DISP.SYRIN IVP PRN (02:17)
[2023-04-28] MEDS: PANTOPRAZOLE SODIUM 40 MG TABLET.DR PO SCH ×2 (06:25→18:23)
[2023-04-28] MEDS: POTASSIUM CHLORIDE 20 MEQ in IV NS 1000 ML 1,000 ML IV PRN (07:10)
--- NOTE | 2023-04-28 07:21 | NUR ---
REPORT GIVEN TO NIRANJAN MORATAYA
[2023-04-28] MEDS: buPROPion XL 150 MG TAB.SR.24H PO SCH (09:10)
[2023-04-28] MEDS: DOCUSATE SODIUM 100 MG CAPSULE PO SCH ×2 (09:10→18:22)
[2023-04-28] MEDS: TAMSULOSIN HCL 0.4 MG CAP.SR.24H PO SCH ×2 (09:10→20:18)
[2023-04-28] MEDS: CYANOCOBALAMIN 1000 MCG/ML VIAL IM SCH (09:10)
[2023-04-28] MEDS: REMEDY ESSENTIAL ZINC PASTE 113 GM TOP SCH ×2 (09:11→20:18)
--- NOTE | 2023-04-28 09:59 | NUR ---
patient is off bilateral soft wrist restrains
[2023-04-28 12:52] LABS: HEMATOCRIT 22.1 % (36.7-47.1); MEAN CORPUSCULAR HEMOGLOBIN 33.4 uug (23.8-33.4); MEAN CORPUSCULAR VOLUME 101.6 fL (73.0-96.2); PLATELET COUNT (AUTO) 324 K/uL (152-348)
--- NOTE | 2023-04-28 13:06 | NUR ---
dr leal made aware about carmen
[2023-04-28] MEDS: CEFTRIAXONE 1 G in IV DEXTROSE 5% 50 ML IV SCH (18:22)
[2023-04-28] MEDS: OLANZAPINE 5 MG TABLET PO SCH (18:22)
[2023-04-28] MEDS: ATORVASTATIN 40 MG TABLET PO SCH (20:18)
[2023-04-29] MEDS: POTASSIUM CHLORIDE 20 MEQ in IV NS 1000 ML 1,000 ML IV PRN (00:55)
[2023-04-29] MEDS: MORPHINE SULFATE 2 MG/1 ML DISP.SYRIN IVP PRN (03:57)
[2023-04-29 05:22] VITALS: BP 123/52
[2023-04-29] MEDS: PANTOPRAZOLE SODIUM 40 MG TABLET.DR PO SCH (06:20)
[2023-04-29 07:15] LABS: HEMATOCRIT 24.6 % (36.7-47.1); MEAN CORPUSCULAR HEMOGLOBIN 33.3 uug (23.8-33.4); PLATELET COUNT (AUTO) 241 K/uL (152-348)
[2023-04-29] MEDS ORDERED: LIDOCAINE 5% PATCH TD SCH ×2 (09:00)
[2023-04-29] MEDS: TAMSULOSIN HCL 0.4 MG CAP.SR.24H PO SCH (09:18)
[2023-04-29] MEDS: CYANOCOBALAMIN 1000 MCG/ML VIAL IM SCH (09:18)
[2023-04-29] MEDS: DOCUSATE SODIUM 100 MG CAPSULE PO SCH (09:18)
[2023-04-29] MEDS: buPROPion XL 150 MG TAB.SR.24H PO SCH (09:19)
[2023-04-29] MEDS: REMEDY ESSENTIAL ZINC PASTE 113 GM TOP SCH (09:19)
--- NOTE | 2023-04-29 09:20 | NUR ---
RCVD PT IN BED AAOX2-3. NO RESPIRATORY DISTRESS AT THIS POINT. ROUTINE MEDS GIVEN AND PT TOLERATED IT WELL. NO EPISODE OF BLEEDING. PT CALM AND COOPERATIVE AT THIS TIME. MAX HARRISON IN PT'S BEDSIDE.
[2023-04-29] MEDS ORDERED: PANT40TA49 PO (11:53)
[2023-04-29] MEDS ORDERED: DOCU-141 PO (11:53)
[2023-04-29] MEDS ORDERED: CYAN1TAB43 PO (11:53)
[2023-04-29] MEDS ORDERED: FERR324T17 PO (11:53)
[2023-04-29] MEDS ORDERED: NITR100C11 PO (11:53)
[2023-04-29 12:45] VITALS: BP 99/50
--- NOTE | 2023-04-29 15:01 | NUR ---
PT [facility] CALLED THE FAMILY TO INFORM ABOUT THE DISCHARGED. PICKED UP BY SLOVENIAN PROFESSIONAL AT 3:OO PM VIA frenting. PT. NO BELONGINGS. GAVE ENDORSEMENT TO AMBULANCE TECH. DISCHARGE PROTOCOL DONE. REMOVED IV AND WRIST BAND. PT STABLE FOR DISCHARGE.
== END 2023-04-29 15:00 | DRG 377 ==
LOC: ER 08:57 → MEDSURG3 11:18
PROVIDERS: ADMIT Internal Medicine; ATTEND Internal Medicine
PROC: 30233N1 Transfusion of Nonautologous Red Blood Cells into Peripheral Vein, Percutaneous Approach (ICD-10-PCS; principal; 2023-04-23)
PROC: 0DJD8ZZ Inspection of Lower Intestinal Tract, Via Natural or Artificial Opening Endoscopic (ICD-10-PCS; 2023-04-26)
DX: K92.2 Gastrointestinal hemorrhage, unspecified (principal); E43 Unspecified severe protein-calorie malnutrition; D62 Acute posthemorrhagic anemia; N39.0 Urinary tract infection, site not specified; K64.8 Other hemorrhoids; Z66 Do not resuscitate; E88.09 Other disorders of plasma-protein metabolism, not elsewhere classified; K56.41 Fecal impaction; N40.0 Benign prostatic hyperplasia without lower urinary tract symptoms; Z96.641 Presence of right artificial hip joint; E87.6 Hypokalemia; Z74.09 Other reduced mobility; E78.5 Hyperlipidemia, unspecified; E83.39 Other disorders of phosphorus metabolism; E53.8 Deficiency of other specified B group vitamins; D75.89 Other specified diseases of blood and blood-forming organs; I10 Essential (primary) hypertension; Z79.82 Long term (current) use of aspirin; Z51.5 Encounter for palliative care; F03.90 Unspecified dementia, unspecified severity, without behavioral disturbance, psychotic disturbance, mood disturbance, and anxiety; Z78.1 Physical restraint status; I87.2 Venous insufficiency (chronic) (peripheral); Z20.822 Contact with and (suspected) exposure to COVID-19
CPT/HCPCS: 36415; 71045; 82378; 83550; 83735; 84100; 84443; 85018; 85025; 85730; 86850; 86900; 86901; 86920; 93005; A6209; A6213; C1758; C9113; G0378; J0171; J0696; J0885; J2060; J2270; J2765; J3010; J3420; J3480; J3490; J7040; J7042; P9016